=== PATIENT | male | born 1990 | race Caucasian/White ===

== ENCOUNTER 2016-08-06 12:56 | Emergency (ER) | payer BC ==
[~2016-08-06] VITALS: Wt 63.6 kg
[~2016-08-06 12:56] MED LIST: SEIZURE MEDS
[2016-08-06] MEDS ORDERED: TETRACAINE 0.5% 15 ML OPH LEFT EYE ONE (13:30)
[2016-08-06] MEDS ORDERED: FLUORESCEIN STRIP LEFT EYE ONE (13:30)
[2016-08-06] MEDS ORDERED: GENTAMICIN 0.3% 5 ML OPH LEFT EYE ONE (13:30)
--- NOTE | 2016-08-06 13:55 | ERD ---
ER Documentation Chief Complaint Date/Time DATE: 08/06/16 TIME: 13:53 Chief Complaint left eye redness and drainage for the past few days . nofevers. HPI This 26-year-old male complains of left eye redness and discomfort with discharge for last 3 days. The mother thinks he has pinkeye. There is no history of trauma. History is significant for cerebral palsy and the patient is nonverbal. ROS All systems reviewed and are negative except as per history of present illness. Medications Home Meds Reported Medications [Seizure Meds] No Conflict Check 03/20/10 Allergies Allergies: Coded Allergies: No Known Drug Allergies (Verified Allergy, Mild, 03/20/10) PMhx/Soc History of Surgery: No Anesthesia Reaction: No Hx Neurological Disorder: Yes (CEREBRAL PALSY SEIZURES) Hx Respiratory Disorders: No Hx Cardiac Disorders: No Hx Psychiatric Problems: No Hx Miscellaneous Medical Probl: No Hx Alcohol Use: No Hx Substance Use: No Hx Tobacco Use: No Smoking Status: Never smoker Physical Exam Vitals Vital Signs Date Time Temp Pulse Resp B/P Pulse Ox O2 Delivery O2 Flow Rate FiO2 08/06/16 13:00 98.9 98 20 120/72 98 Physical Exam Const: [] Alert, no apparent distress. Baseline mental status wheelchair, nonverbal bilateral upper and lower extremity contractures. Head: Atraumatic Eyes: No scleral redness. Eyes are Malik extraocular movements appear grossly intact. Anterior chambers appear normal. No appreciable fluorescein uptake no ulcers of dendritic lesions. ENT: Normal External Ears, Nose and Mouth. Neck: Full range of motion..~ No meningismus. Resp: Clear to auscultation bilaterally Cardio: Regular rate and rhythm, no murmurs Abd: Soft, non tender, non distended. Normal bowel sounds Skin: No petechiae or rashes Back: No midline or flank tenderness Ext: No cyanosis, or edema Neur: Awake and alert Psych: Normal Mood and Affect Results 24 hrs Current Medications Medications (Trade) Dose Ordered Sig/Varun Route PRN Reason Start Time Stop Time Status Last Admin Dose Admin Tetracaine HCl (Tetracaine 0.5% Oph) 1 drop ONCE ONCE LEFT EYE 08/06/16 13:30 08/06/16 13:31 Fluorescein Sodium ([id number]) 1 strip ONCE ONCE LEFT EYE 08/06/16 13:30 08/06/16 13:31 08/06/16 13:35 Gentamicin Sulfate (Gentamicin 0.3% Oph Drop) 1 drop ONCE ONCE LEFT EYE 08/06/16 13:30 08/06/16 13:31 Procedures/MDM Patient presents with left eye redness and discharge likely conjunctivitis. Visual acuity is not performed given patient's mental status. There is no signs or symptoms or evidence to suggest corneal ulcers, dendritic lesions, optic neuritis, acute glaucoma,, orbital cellulitis. Patient was administered gentamicin ophthalmic drops here and will be discharged home with instructions to use drops 4 times a day, follow-up with campus director for persistent or worsening symptoms otherwise return for fevers, facial swelling, new symptoms to the ED. Departure Diagnosis: Primary Impression: Conjunctivitis Conjunctivitis type: unspecified Laterality: left Qualified Code: H10.9 - Conjunctivitis of left eye, unspecified conjunctivitis type Condition: Stable Patient Instructions: Conjunctivitis, Non-Specific Referrals: [facility] Hours: Mon - Fri 9:00 AM - 5:00 PM Additional Instructions: Likely conjunctivitis. Take Tylenol for discomfort. Recheck with campus director for persistent symptoms next week or recheck sooner for new or worsening symptoms. Use drops 4 times a day. KAVEH MAC MD Aug 06, 2016 13:55
== END 2016-08-06 14:04 | disposition home or self-care (01) ==
LOC: FTE 12:56
DX: H10.9 Unspecified conjunctivitis (principal)
CPT/HCPCS: 99283

== ENCOUNTER → 2016-10-22 | Outpatient (CLI) | payer BC, OTHER ==
[2016-10-22 10:32] LABS: ADD SCAN DIFF NO
[2016-10-22 10:45] LABS: BASOPHILS % 0.2 % (0.0-2.0); EOSINOPHILS # 0.2 10^3/ul (0.0-0.5); EOSINOPHILS % 3.4 % (0.0-7.0); HEMATOCRIT 41.4 % (42.0-52.0); HEMOGLOBIN 14.2 g/dl (14.0-18.0); LYMPHOCYTES # 1.5 10^3/ul (0.8-2.9); LYMPHOCYTES % 25.6 % (15.0-51.0); MEAN CORPUSCULAR HEMOGLOBIN 30.1 pg (29.0-33.0); MEAN CORPUSCULAR HGB CONC 34.3 g/dl (32.0-37.0); MEAN CORPUSCULAR VOLUME 87.9 fl (82.0-101.0); MEAN PLATELET VOLUME 10.1 fl (7.4-10.4); MONOCYTE # 0.4 10^3/ul (0.3-0.9); MONOCYTES % 6.9 % (0.0-11.0); NEUTROPHIL # 3.6 10^3/ul (1.6-7.5); NEUTROPHILS % 63.7 % (39.0-77.0); PLATELET COUNT 154 10^3/UL (140-415); RED BLOOD COUNT 4.71 10^6/ul (4.70-6.10); RED CELL DISTRIBUTION WIDTH 11.9 % (11.5-14.5); WHITE BLOOD COUNT 5.7 10^3/ul (4.8-10.8)
[2016-10-22 11:03] LABS: ALBUMIN 4.6 g/dl (3.3-4.9); POTASSIUM 3.6 mmol/L (3.5-5.1)
[2016-10-22 11:06] LABS: BILIRUBIN,INDIRECT 0.3 mg/dl (0-1.1); BILIRUBIN,TOTAL 0.3 mg/dl (0.2-1.3); CALCIUM 9.6 mg/dl (8.4-10.2); CREATININE 0.95 mg/dl (0.61-1.24); TOTAL PROTEIN 7.6 g/dl (6.1-8.1)
== END | disposition home or self-care (01) ==
LOC: LAB 10:00
PROVIDERS: ATTEND Psychiatry & Neurology Neurology
DX: G40.309 Generalized idiopathic epilepsy and epileptic syndromes, not intractable, without status epilepticus (principal); G80.9 Cerebral palsy, unspecified
CPT/HCPCS: 80048; 80076; 85025